=== PATIENT | male | born 1965 | race Caucasian/White ===

== ENCOUNTER 2021-10-09 12:59 | Emergency (ER) | payer OTHER ==
[2021-10-09] MEDS ORDERED: Lidocaine 0.5% 50 ML SDV ONE (15:23)
[2021-10-09 15:48] VITALS: BP 146/74; PULSE 68
== END 2021-10-09 16:21 | disposition home or self-care (01) ==
LOC: JP.ED 12:59
DX: S61.011A Laceration without foreign body of right thumb without damage to nail, initial encounter (principal); S61.210A Laceration without foreign body of right index finger without damage to nail, initial encounter; S61.212A Laceration without foreign body of right middle finger without damage to nail, initial encounter; S61.214A Laceration without foreign body of right ring finger without damage to nail, initial encounter; F17.210 Nicotine dependence, cigarettes, uncomplicated; Z88.0 Allergy status to penicillin; W29.3XXA Contact with powered garden and outdoor hand tools and machinery, initial encounter
CPT/HCPCS: 12004; 12044; 73130-26-RT; 73130-RT; 99281; 99283